=== PATIENT | male | born 1990 | race Caucasian/White ===

== ENCOUNTER 2018-06-25 05:18 | Emergency (ER) | payer MEDICAID ==
[~2018-06-25] VITALS: Ht 182.9 cm; Wt 82.0 kg
[2018-06-25 08:13] LABS: *AMPHETAMINES SCREEN URINE PRESUMTIVE POSITIVE (NEGATIVE); *BARBITURATES SCREEN URINE NEGATIVE (NEGATIVE); *BENZODIAZEPINES SCREEN URINE NEGATIVE (NEGATIVE); *COCAINE SCREEN URINE NEGATIVE (NEGATIVE); CANNABINOID URINE SCREEN PRESUMTIVE POSITIVE (NEGATIVE); METHADONE URINE SCREEN NEGATIVE (NEGATIVE); OPIATES URINE SCREEN NEGATIVE (NEGATIVE); PHENCYCLIDINE URINE SCREEN NEGATIVE (NEGATIVE)
[2018-06-25 08:25] VITALS: BP 145/87
== END 2018-06-25 08:35 | disposition home or self-care (01) ==
LOC: ER 05:18
DX: F15.10 Other stimulant abuse, uncomplicated (principal); F32.9 Major depressive disorder, single episode, unspecified; R00.0 Tachycardia, unspecified; F11.10 Opioid abuse, uncomplicated
CPT/HCPCS: 80305; 99283

== ENCOUNTER 2018-06-25 09:16 | Emergency (ER) | payer MEDICAID ==
[~2018-06-25] VITALS: Ht 188 cm; Wt 82.0 kg
[2018-06-25] MEDS ORDERED: LORAZEPAM 2MG/ML CPJ IM PRN (10:30)
[2018-06-25 10:56] LABS: BASOPHILS % 0.6 % (0.0-2.0); EOSINOPHILS % 0.1 % (0.0-5.0); HEMATOCRIT. 45.9 % (42.0-52.0); HEMOGLOBIN. 16.1 g/dL (14.0-18.0); LYMPHOCYTES % 16.6 % (20.0-50.0); MEAN CORPUSCULAR HEMOGLOBIN 31.7 pg (28.0-32.0); MEAN CORPUSCULAR VOLUME 90.3 fL (80.0-94.0); MEAN PLATELET VOLUME 6.8 fl (7.4-10.4); MONOCYTES % 11.5 % (2.0-8.0); NEUTROPHILS % 71.2 % (40.0-76.0); PLATELET 256 x1000/uL (130-400); RED BLOOD CELL COUNT 5.08 mill/uL (4.7-6.1); RED CELL DISTRIBUTION WIDTH 13.2 % (11.6-14.6)
[2018-06-25 11:03] LABS: CHLORIDE 106 mEq/L (98-107)
[2018-06-25 11:07] LABS: ETHANOL BLOOD < 10 mg/dL
[2018-06-25 11:10] VITALS: BP 132/88
== END 2018-06-25 13:00 | disposition home or self-care (01) ==
LOC: ER 09:27
DX: F41.9 Anxiety disorder, unspecified (principal); F22 Delusional disorders; F15.10 Other stimulant abuse, uncomplicated; F20.9 Schizophrenia, unspecified; F32.9 Major depressive disorder, single episode, unspecified
CPT/HCPCS: 36415; 80053; 85025; 99284; G0482

== ENCOUNTER 2018-07-02 01:15 | Emergency (ER) | payer MEDICAID ==
[~2018-07-02] VITALS: Ht 182.9 cm; Wt 100.0 kg
[2018-07-02 01:18] VITALS: BP 143/87
== END 2018-07-02 02:30 | disposition home or self-care (01) ==
LOC: ER 01:15
DX: F15.10 Other stimulant abuse, uncomplicated (principal); F22 Delusional disorders
CPT/HCPCS: 99283; Z7610

== ENCOUNTER 2018-07-02 02:49 | Emergency (ER) | payer MEDICAID ==
[~2018-07-02] VITALS: Ht 182.9 cm; Wt 90.0 kg
[2018-07-02 03:05] VITALS: BP 140/112
[2018-07-02] MEDS ORDERED: ZIPRASIDONE MESYLATE 20MG/VIAL IM STA (03:30)
[2018-07-02] MEDS ORDERED: ZIPRASIDONE HCL 20MG CAPSULE PO ONE (06:00)
== END 2018-07-02 06:36 | disposition home or self-care (01) ==
LOC: ER 06:30
DX: R45.851 Suicidal ideations (principal); F15.10 Other stimulant abuse, uncomplicated
CPT/HCPCS: 99281; 99283